=== PATIENT | female | born 1995 | race Two or more races ===

== ENCOUNTER 2017-10-14 23:48 | Emergency (ER) | payer OTHER ==
[~2017-10-14] VITALS: Ht 167.6 cm; Wt 63.5 kg
[2017-10-15 00:28] VITALS: BP 132/74
[2017-10-15] MEDS ORDERED: diphenhydrAMINE HCL 25 MG CAPSULE ONE (01:07)
[2017-10-15] MEDS ORDERED: ACETAMINOPHEN ES 500 MG TABLET ONE (01:07)
[2017-10-15] MEDS ORDERED: ACETAMINOPHEN 325 MG TABLET PO ONE (01:30)
[2017-10-15] MEDS ORDERED: diphenhydrAMINE HCL 25 MG CAPSULE PO ONE (01:30)
== END 2017-10-15 01:20 | disposition home or self-care (01) ==
LOC: ER 23:49
DX: S90.862A Insect bite (nonvenomous), left foot, initial encounter (principal); W57.XXXA Bitten or stung by nonvenomous insect and other nonvenomous arthropods, initial encounter; Y93.89 Activity, other specified; Y92.89 Other specified places as the place of occurrence of the external cause; Y99.8 Other external cause status
CPT/HCPCS: 99283; A4606; Q0163; Z7610

== ENCOUNTER 2020-11-24 11:30 | Emergency (ER) | payer MEDICAID, OTHER ==
[~2020-11-24] VITALS: Ht 167.6 cm; Wt 57.2 kg
[2020-11-24 11:49] VITALS: BP 114/63
--- NOTE | 2020-11-24 11:50 | NUR ---
DR DENNIS AT THE BEDSIDE
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
[2020-11-24] MEDS ORDERED: KETOROLAC TROMETHAMINE INJ 60 MG/2 ML VIAL IM ONE (12:00)
[2020-11-24] MEDS ORDERED: KETOROLAC TROMETHAMINE INJ 30 MG/ML VIAL ONE (12:01)
[2020-11-24] MEDS ORDERED: IBUPROFEN 400 MG TABLET ONE (12:05)
--- NOTE | 2020-11-24 12:06 | NUR ---
THE PATIENT REFUSED TORADOL [address] DENNIS MADE AWARE AND RECEIVED A NEW ORDER OF MOTRIN 800 MG PO ONCE. THE ORDER IS READ BACK, VERIFIED. NOTED AND CARRIED OUT.
--- NOTE | 2020-11-24 12:06 | NUR ---
X-RAY TECH AT THE BEDSIDE
[2020-11-24] MEDS ORDERED: IBUPROFEN 400 MG TABLET PO ONE (12:30)
--- NOTE | 2020-11-24 13:19 | NUR ---
SEEN AND EVALUATED. JACOB BANDAGE APPLIED. DISCHARGE IN STABLE CONDITION.
== END 2020-11-24 13:20 | disposition home or self-care (01) ==
LOC: ER 11:33
DX: S93.504A Unspecified sprain of right lesser toe(s), initial encounter (principal); W23.0XXA Caught, crushed, jammed, or pinched between moving objects, initial encounter; Y93.89 Activity, other specified; Y92.89 Other specified places as the place of occurrence of the external cause; Y99.8 Other external cause status
CPT/HCPCS: 73630-TC; J1885

== ENCOUNTER 2021-08-17 11:53 | Emergency (ER) | payer MEDICAID ==
[~2021-08-17] VITALS: Ht 167.6 cm; Wt 53.5 kg
[2021-08-17 12:01] VITALS: BP 113/52
--- NOTE | 2021-08-17 12:01 | NUR ---
SORE THROAT SINCE WED. COVID NEG YEST
[2021-08-17] MEDS ORDERED: TRAMADOL HCL 50 MG TABLET PO ONE (12:30)
--- NOTE | 2021-08-17 12:59 | NUR ---
RAPID FLU, RAPID STREP, AND PCR COVID COLLECTED AND SENT
--- NOTE | 2021-08-17 13:10 | NUR ---
Patient discharged to home in stable condition. Written and verbal after care instructions given. Patient verbalizes understanding of instruction.
== END 2021-08-17 13:11 | disposition home or self-care (01) ==
LOC: ER 11:57
DX: J02.0 Streptococcal pharyngitis (principal); B95.0 Streptococcus, group A, as the cause of diseases classified elsewhere; Z20.822 Contact with and (suspected) exposure to COVID-19
CPT/HCPCS: 87804; 87880; 99283; C9803; U0003; 86403-TC